=== PATIENT | female | born 1975 | race African-American/Black ===

== ENCOUNTER 2023-03-22 14:10 | Emergency (ER) | payer OTHER ==
[~2023-03-22] VITALS: Ht 175.3 cm; Wt 109.0 kg
[2023-03-22 15:05] LABS: HEMATOCRIT. 35.5 % (36.0-48.0); HEMOGLOBIN. 11.8 g/dL (12.0-16.0); MEAN CORPUSCULAR VOLUME 84.3 fL (81.0-99.0); MEAN PLATELET VOLUME 8.6 fl (7.4-10.4); PLATELET 221 x1000/uL (130-400); RED BLOOD CELL COUNT 4.21 mill/uL (4.2-5.4); RED CELL DISTRIBUTION WIDTH 16.7 % (11.6-14.6)
[2023-03-22 15:11] LABS: CHLORIDE 107 mEq/L (98-107)
[2023-03-22 15:20] LABS: ETHANOL BLOOD < 10 mg/dL
[2023-03-22 15:43] LABS: PLATELET ESTIMATE NORMAL
[2023-03-22] MEDS ORDERED: POTASSIUM CHLORIDE INJ 40 MEQ in DEXT 5% WATER 250 ML IV ONE (15:45)
[2023-03-22] MEDS: KCL 20MEQ/100ML X 2 FOR TOTAL KCL 40MEQ/200ML IV SCH ×2 (16:38→21:14)
[2023-03-22] MEDS ORDERED: MORPHINE SULFATE 4 MG/ML CPJ (NOT FOR IM USE) IV ONE (17:45)
[2023-03-22] MEDS ORDERED: MORPHINE SULFATE 4 MG/ML CPJ (NOT FOR IM USE) IV NR (19:45)
[2023-03-22 20:46] LABS: CLARITY URINE CLOUDY (CLEAR); COLOR URINE YELLOW (YELLOW); KETONES URINE NEGATIVE (NEGATIVE); LEUKOCYTE ESTERASE URINE NEGATIVE (NEGATIVE); NITRITE URINE NEGATIVE (NEGATIVE); OCCULT BLOOD URINE NEGATIVE (NEGATIVE); PH URINE 5.5 (4.5-8.0); PROTEIN URINE NEGATIVE (NEGATIVE); SPECIFIC GRAVITY URINE 1.025 (1.005-1.030); UROBILINOGEN URINE 0.2 E.U./dL (0.2-1.0)
[2023-03-22 20:57] LABS: *AMPHETAMINES SCREEN URINE NEGATIVE (NEGATIVE); *BARBITURATES SCREEN URINE NEGATIVE (NEGATIVE); *BENZODIAZEPINES SCREEN URINE NEGATIVE (NEGATIVE); *COCAINE SCREEN URINE NEGATIVE (NEGATIVE); METHADONE URINE SCREEN NEGATIVE (NEGATIVE); OPIATES URINE SCREEN NEGATIVE (NEGATIVE); PHENCYCLIDINE URINE SCREEN NEGATIVE (NEGATIVE)
[2023-03-22 21:08] LABS: CANNABINOID URINE SCREEN PRESUMTIVE POSITIVE (NEGATIVE)
[2023-03-23] MEDS ORDERED: ONDA4TAB50 MT (00:24)
[2023-03-23] MEDS ORDERED: LOPE2CAP MT (00:24)
[2023-03-23] MEDS ORDERED: METOCLOPRAMIDE HCL 10MG/2ML VIAL IV ONE (01:00)
[2023-03-23 01:31] VITALS: BP 149/86
[2023-03-23] MEDS ORDERED: METO5TAB86 MT (01:47)
== END 2023-03-23 01:55 | disposition home or self-care (01) ==
LOC: ER 14:10
DX: R10.9 Unspecified abdominal pain (principal); R11.2 Nausea with vomiting, unspecified; E87.6 Hypokalemia; I10 Essential (primary) hypertension
CPT/HCPCS: 36415; 74177; 80053; 80305; 80320; 81003; 81025; 83690; 85025; 96365; 96375; 99285; J2270; J2765; J3480; Z7610; G0480

== ENCOUNTER 2023-10-18 10:49 | Emergency (ER) | payer MEDICAID, OTHER ==
[~2023-10-18] VITALS: Ht 175.3 cm; Wt 99.0 kg
[~2023-10-18 10:49] MED LIST: LOPE2CAP MT; METO5TAB86 MT; ONDA4TAB50 MT
[2023-10-18 11:01] VITALS: O2SAT 99
[2023-10-18] MEDS ORDERED: ACETAMINOPHEN 325MG TABLET PO STA (12:34)
[2023-10-18] MEDS ORDERED: ACET-2708 MT (12:49)
[2023-10-18 13:35] VITALS: BP 127/67; PULSE 71; RESP 18; TEMP 98.7
== END 2023-10-18 13:40 | disposition home or self-care (01) ==
LOC: ER 10:49
DX: R51.9 Headache, unspecified (principal); R42 Dizziness and giddiness; I10 Essential (primary) hypertension; Z90.49 Acquired absence of other specified parts of digestive tract
CPT/HCPCS: 99284